=== PATIENT | male | born 1975 ===

== ENCOUNTER 2018-09-24 10:24 | Emergency (ER) | payer OTHER ==
--- NOTE | 2018-09-24 10:54 | ED PDOC ---
HPI: General Adult Time Seen by Provider: 09/24/18 10:52 Chief Complaint (Nursing): Chest Pain Chief Complaint (Provider): chest pain History Per: Patient (43 y/o male here with chest pain x 2 weeks intermittent left sided described as pulsing x 5 minutes. No cough/fever/chills. States symptoms began while lifting objects at work. Notes intermittent left arm numbness but unsure if related. No smoking/no drugs. Has not had primary care evaluation in years. No family h/o [place].) Past Medical History Reviewed: Historical Data, Nursing Documentation, Vital Signs Vital Signs: Last Vital Signs Temp 98.5 F 09/24/18 10:31 Pulse 74 09/24/18 10:31 Resp 18 09/24/18 10:31 BP 120/64 09/24/18 10:31 Pulse Ox 97 09/24/18 10:31 - Family History Family History: States: No Known Family Hx - Allergies Allergies/Adverse Reactions: Allergies Allergy/AdvReac Type Severity Reaction Status Date / Time No Known Allergies Allergy Verified 09/24/18 10:49 Review of Systems ROS Statement: Except As Marked, All Systems Reviewed And Found Negative Physical Exam - Reviewed Nursing Documentation Reviewed: Yes Vital Signs Reviewed: Yes - Physical Exam Appears: Positive for: Well, Non-toxic, No Acute Distress Head Exam: Positive for: ATRAUMATIC, NORMAL INSPECTION, NORMOCEPHALIC Skin: Positive for: Normal Color, Warm, DRY Eye Exam: Positive for: EOMI, Normal appearance, PERRL ENT: Positive for: Normal ENT Inspection Neck: Positive for: Normal, Painless ROM Cardiovascular/Chest: Positive for: Regular Rate, Rhythm Respiratory: Positive for: CNT, Normal Breath Sounds Gastrointestinal/Abdominal: Positive for: Normal Exam, Soft Back: Positive for: Normal Inspection Extremity: Positive for: Normal ROM Neurologic/Psych: Positive for: Alert, Oriented - Laboratory Results Result Diagrams: 09/24/18 11:07 09/24/18 11:07 - ECG ECG Rhythm: Positive for: Sinus Rhythm (nsr 67bpm; no ectopy no acute changes) O2 Sat by Pulse Oximetry: 97 - Progress ED Course And Treament: ASA 324 mg x 1 dose CXR: NAD 2ND TROPONIN WNL 3 HOURS AFTER FIRST TROPONIN. Disposition - Clinical Impression Clinical Impression: Chest pain - Patient ED Disposition Is Patient to be Admitted: No - Disposition Referrals: Louis Alvarado MD [Staff Provider] - [facility] [Outside] Disposition: Routine/Home Disposition Time: 14:46 Condition: FAIR Instructions: Chest Pain (DC) Forms: [facility] ED School/Work Excuse Print Language: SWEDISH
[2018-09-24 11:15] VITALS: PULSE 61
[2018-09-24 11:15] LABS: BASO # 0.1 K/uL (0.0-0.2); BASO % 1.2 % (0.0-2.0); EOS # 0.4 K/uL (0.0-0.7); EOS % 7.2 % (0.0-4.0); HEMOGLOBIN 14.9 g/dL (12.0-18.0); LYMPH # 1.5 K/uL (1.0-4.3); LYMPH % 28.9 % (20.0-40.0); MEAN CELL VOLUME 90.6 fl (80.0-94.0); MEAN CORPUSCULAR HEMOGLOBIN 30.2 pg (27.0-31.0); MEAN CORPUSCULAR HGB CONC 33.4 g/dL (33.0-37.0); MEAN PLATELET VOLUME 8.6 fl (7.2-11.7); MONO # 0.4 K/uL (0.0-0.8); MONO % 7.3 % (0.0-10.0); NEUT # 2.9 K/uL (1.8-7.0); NEUT % 55.4 % (50.0-75.0); NRBC % 0.4 % (0.0-0.0); RBC 4.94 Mil/uL (4.40-5.90); WHITE BLOOD COUNT 5.2 K/uL (4.8-10.8)
[2018-09-24 11:29] LABS: ALB/GLOB RATIO 1.5 (1.0-2.1); ALBUMIN 4.6 g/dL (3.5-5.0); ALT/SGPT 92 U/L (21-72); AST/SGOT 60 U/L (17-59); BLOOD UREA NITROGEN 20 mg/dl (9-20); CALCIUM 9.6 mg/dL (8.4-10.2); GFR NON-AFRICAN AMERICAN > 60
--- NOTE | 2018-09-24 12:27 | RAD ---
Date of service: 09/24/2018 HISTORY: routine COMPARISON: The the the FINDINGS: LUNGS: No active pulmonary disease. PLEURA: No significant pleural effusion identified, no pneumothorax apparent. CARDIOVASCULAR: No aortic atherosclerotic calcification present. Normal cardiac size. No pulmonary vascular congestion. OSSEOUS STRUCTURES: No significant abnormalities. VISUALIZED UPPER ABDOMEN: Normal. OTHER FINDINGS: None. IMPRESSION: No active disease.
[2018-09-24 15:07] VITALS: BP 119/65; RESP 16; TEMP 98.2; O2SAT 98
== END 2018-09-24 15:06 | disposition home or self-care (01) ==
LOC: H.ER 10:24
DX: R07.89 Other chest pain (principal)